=== PATIENT | female | born 2005 | race Two or more races ===

== ENCOUNTER 2025-02-28 17:54 | Emergency (ER) | payer SELFPAY ==
[2025-02-28 17:59] VITALS: BP 128/69; PULSE 113; RESP 16; TEMP 37.3; O2SAT 99; BMI 21.0
--- NOTE | 2025-02-28 18:03 | ED.GENADULT ---
HPI - General Adult General Chief complaint: Ear Problems Stated complaint: right ear hearing loss; fever Time Seen by Provider: 02/28/25 19:52 Source: patient Mode of arrival: ambulatory Limitations: no limitations History of Present Illness ED Provider: HPI narrative: Patient complaining of hearing loss and pain in the right ear low-grade fever for last 2 -3 days no discharge from the ER Related Data Previous Rx's ?Medication ?Instructions ?Recorded amoxicillin 875 mg-potassium 1 tab PO BID #20 tabs 02/28/25 clavulanate 125 mg tablet ibuprofen 400 mg tablet 400 mg PO Q8H PRN fever or pain 02/28/25 #20 tabs Allergies Allergy/AdvReac Type Severity Reaction Status Date / Time No Known Allergies Allergy Verified 02/28/25 18:04 Review of Systems Review of Systems: Yes all other systems are reviewed and are negative [facility] Social History Social History Advance Directives: No Advance Directives Information Provided: No Do you have a plan to hurt others: No Plan Physical Exam ED Exam Exam: Appearance: Alert. Oriented X3. No acute distress. Eyes: PERRLA, No Nystagmus ENT: Pharynx normal. Oral Mucosa moist right tympanic membrane with fluid behind the drum bulging slight erythematous Neck: Normal inspection. Neck supple. CVS: Normal heart rate and rhythm. Pulses normal. Respiratory: No respiratory distress. Equal air entry bilateral, no wheezing/rales/rhonchi Abdomen: Soft and nontender. Bowel sounds are present, no mass palpable, no CVA tenderness Skin: Skin warm and dry. Normal skin color. Normal skin turgor. Extremities: No lower extremity edema. No calf tenderness Neuro: Oriented X 3. Vital Signs: Vital Signs - 24 hr 02/28/25 17:59 02/28/25 20:00 02/28/25 20:27 Temperature 99.1 F 98.0 F 98.0 F Pulse Rate 113 H 108 H 108 H Respiratory Rate 16 18 18 Blood Pressure 128/69 119/60 119/60 Pulse Oximetry 99 100 100 Oxygen Delivery Method Room Air Room Air Room Air BMI result Body Mass Index 21.0 Course Course Course Narrative: This is a rapid medical exam performed by Eris Serrano NP: Additional HPI, ROS, PE not included below will be deferred to primary provider. Patient is a 19-year-old female presenting to the ED with complaint of right ear pain with blocked sensation and decreased hearing as well as headache and subjective fevers. Plan: Strep and viral swabs Medications Administered Discontinued Medications Generic Name Dose Route Start Last Admin Trade Name Freq PRN Reason Stop Dose Admin Ibuprofen 600 mg 02/28/25 20:13 02/28/25 20:24 Ibuprofen 600 Mg Tablet PO 02/28/25 20:14 600 mg ONCE ONE Administration Medical Decision Making Lab Data MDM Lab Attestation statement: I reviewed the patient's lab results. Labs: Lab Results 02/28/25 Range/Units 18:21 Influenza Type A (PCR) NEGATIVE (Negative) Influenza Type B (PCR) NEGATIVE (Negative) RSV RNA Qual (PCR) NEGATIVE (Negative) SARS-CoV-2 RNA (RT-PCR) NEGATIVE (Negative) S. pyogenes GrpA KRISTEN Negative (Negative) Discharge Plan Discharge Clinical Impression: Otitis media Patient Disposition: Home, Self-Care Instructions: Ear Infection (ED) Additional Instructions: Take antibiotic as prescribed Tylenol/Motrin for pain Prescriptions: New amoxicillin-pot clavulanate 875-125 mg tablet 1 tab PO BID Qty: 20 0RF ibuprofen 400 mg tablet 400 mg PO Q8H PRN (Reason: fever or pain) Qty: 20 0RF Interventions: ED Discharge Assessment Last Done: 02/28/25 20:27 Discharge Date/Time: 02/28/25 20:31 Print Language: Gabonese
[2025-02-28 18:37] LABS: IDNOW Serial# 58CA691E; Strep A Nucleic Acid Negative (Negative)
[2025-02-28 19:08] LABS: Resp Syncy Virus RNA Qual PCR NEGATIVE (Negative); SARS COV2 PCR INHOUSE NEGATIVE (Negative)
[2025-02-28 20:00] VITALS: BP 119/60; PULSE 108; RESP 18; TEMP 36.7; O2SAT 100
[2025-02-28 20:27] VITALS: BP 119/60; PULSE 108; RESP 18; TEMP 36.7; O2SAT 100
== END 2025-02-28 20:31 | disposition home or self-care (01) ==
PROVIDERS: Registered Nurse Emergency; Emergency Provider Internal Medicine
DX: H91.8X1 Other specified hearing loss, right ear (principal); R50.9 Fever, unspecified; Z03.818 Encounter for observation for suspected exposure to other biological agents ruled out
CPT/HCPCS: 87637; 87651; 99283